=== PATIENT | female | born 1955 | race Caucasian/White ===

== ENCOUNTER 2016-09-02 06:08 | Emergency (ER) | payer OTHER ==
[2016-09-02] MEDS ORDERED: IBUPROFEN 600 MG TABLET ONE (06:38)
--- NOTE | 2016-09-02 07:59 | RAD ---
History: Back pain after fall. Comparison: None. Technique: 2 views Findings: Evaluation of the thoracic spine demonstrates a questionable subtle compression deformity of the mid thoracic spine at the approximate T8 level. The heart size is appropriate. There is no consolidation, effusion or pneumothorax is seen. The hilar and mediastinal structures are intact. Impression: 1. A questionable midthoracic compression deformity of unknown age and etiology at the approximate T8 level.
--- NOTE | 2016-09-02 08:14 | RAD ---
WRIST- RIGHT 3 VIEWS HISTORY: Fall with wrist pain. COMPARISONS: None. FINDINGS: 3 views of the right wrist were performed demonstrating an obliquely oriented intra-articular fracture involving the distal radial metaphysis. No significant angulation is observed. The carpal structures are grossly intact. Mild degenerative changes of the articulation between the trapezium and the base of the first metacarpal are noted. IMPRESSION: 1. An intra-articular fracture involving the distal right radial metaphysis. 2. 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
== END 2016-09-02 08:40 | disposition home or self-care (01) ==
LOC: ED 06:08
DX: S52.91XA Unspecified fracture of right forearm, initial encounter for closed fracture (principal); E03.9 Hypothyroidism, unspecified; W00.1XXA Fall from stairs and steps due to ice and snow, initial encounter; Y93.01 Activity, walking, marching and hiking; Y92.008 Other place in unspecified non-institutional (private) residence as the place of occurrence of the external cause; Y99.8 Other external cause status; Z79.899 Other long term (current) drug therapy